=== PATIENT | male | born 1940 | race Caucasian/White ===

== ENCOUNTER 2025-02-23 19:01 | Inpatient (IN) | payer OTHER, SELFPAY ==
[2025-02-23] VITALS (13 sets, daily range): BP systolic 91–129; BP diastolic 46–83; BMI 40.5; BMI 40.2
[2025-02-23 16:37] LABS: % Basophils 0.3 % (0-2); % Eosinophils 0.3 % (0-6); % Immature Granulocytes 0.4 % (0-0.5); % Lymphocytes 8.6 % (20.5-51.1); % Monocytes 7.3 % (1.7-9.3); % Neutrophils 83.1 % (42.2-75.2); Absolute Immature Granulocytes 0.1 10^3/uL (0-0.05); Absolute Monocytes 0.9 10^3/uL (0.1-0.6); Hematocrit 36.9 % (39.0-52.0); Hemoglobin 12.8 g/dL (13.0-18.0); Mean Corp Hgb Conc. 34.7 g/dL (33.0-37.0); Mean Corpuscular Hgb 30.7 pg (27.0-31.0); Mean Corpuscular Volume 88.5 fL (80.0-94.0); Mean Platelet Volume 9.2 fL (7.4-10.4); Nucleated Red Blood Cells % 0 % (-); Platelet Count 242 10^3/uL (130-400); Red Blood Cell Count 4.17 10^6/uL (4.70-6.10); Red Cell Dist. Width 13.5 % (11.5-14.5)
--- NOTE | 2025-02-23 16:39 | ED.GENMED ---
History of Present Illness
General
Chief Complaint: Weakness
Source: patient
Exam Limitations: none
Time Seen by Provider: 02/23/25 16:25
History of Present Illness
History of Present Illness:
84yoM with a history of rheumatoid arthritis, fibromyalgia, and prediabetes presenting via EMS for evaluation after a fall. Patient was attempting to sit in a chair in his garage when he missed the chair and fell on his buttocks. There was no head
strike or loss of consciousness. Patient was unable to get off the ground so EMS was called. He estimates he was on the ground for about 15 to 20 minutes. He denies any injuries from the fall. Patient was hypotension with SBP in the 80s on EMS
arrival and tachycardic. Of note, patient was seen by his newspaper stuffer about 2 weeks ago for a right foot and toe infection. He was advised to go to the hospital to have this evaluated but refused. He was on a 2-week course of antibiotics which he
finished 2 days ago, he is unsure of the name. Patient has also been having increased bilateral leg swelling over the past several weeks. The dose of his water pill was increased from 20 mg to 60 mg a day last week but the patient has not noted
any increase in urination with the medication change. He admits to feeling fatigued. He denies any chest pain, shortness of breath, vomiting, diarrhea, dysuria.
Past History
Past History
ED Past Medical History: Other (IBS/fibromyalgia) and Other (Prostate Hypertrophy)
Patient has exhibited threatening behavior?: No
Social History
Tobacco: Non-smoker
Personal:
Living: with family
Employment: Retired
Phy Exam
Physical Exam
Physical Exam:
Ill appearing, non-toxic
General Physical Exam
General Presentation: mild distress
General Skin: warm and dry
General Habitus: normal and elderly
General Mental: alert
ENT Exam
ENT Exam: normocephalic and other (No external signs of head trauma. No cervical spine tenderness.)
Cardiovascular Exam
Cardiovascular Exam: tachycardia and other (2-3+ pitting edema in bilateral lower extremities)
Pulmonary Exam
Pulmonary Exam: lungs clear, no respiratory distress, no rales, chest non tender, no crackles and no rhonchi
Gastrointestinal Exam
Gastrointestinal Exam: non tender, soft and non distended
Neurological Exam
Neurological Exam: alert
[place] Coma Scale
Eye Opening: Spontaneous
Verbal Response: Oriented
Motor Response: Obeys Commands
GCS Total Score: 15
Skin Exam
Skin Exam: other (R 3rd toe is swollen with open wound and malodor. There is erythema and warmth to the toe extending to the midfoot. No crepitus. )
Psychiatric Exam
Psychiatric Exam: normal mood/affect
Sepsis
Sepsis Screening
Sepsis Assessment: Severe Sepsis
Sepsis Screening: Lactate >2mmol/L
Sepsis Screen
Sepsis Screen: Severe Sepsis
Date: 02/23/25
Time: 19:04
Course
Orders/Labs/Results
Orders:
Orders
02/23/25 16:23
Electrocardiogram (*1) Urgent
Reason for Study: Other
Other Reason for Exam: Possible Sepsis
EKG- Treatment ONCE
IV Insert/Care/Rem.- Treatment PRN
CR Chest - 2 Views Urgent
Comment:
Reason For Exam: suspected infection
02/23/25 16:26
Complete Blood Count/With Diff Urgent
Comprehensive Metabolic Panel Urgent
Lactic Acid Q4H
Comment: ON ICE, CANCEL 2ND ORDER IF FIRST LACTIC ACID LEVEL <2
Magnesium Urgent
Blood Culture Q20M
ARUNA Source: Blood/Venous
Specimen Description:
Comment: Urgent from separate sites. If patient screens positive for possible sepsis
CR Foot - Right Min 3 Views Urgent
Comment:
Reason For Exam: toe swelling/wound
02/23/25 16:27
Cardiac Monitoring- Treatment ONCE
02/23/25 16:30
NT-proBNP Urgent
TSH Reflex To Free T4 Urgent
Troponin I Urgent
Blood Culture Q20M
ARUNA Source: Blood/Venous
Specimen Description:
Comment: Urgent from separate sites. If patient screens positive for possible sepsis
02/23/25 16:41
0.9% Sodium Chloride 500 ml [Nss] 500 ml IV BOLUS
Acetaminophen [Tylenol] 1,000 mg PO NOW STA
02/23/25 17:24
Piperacillin/Tazo 4.5 Gram [Zosyn] 4.5 gram in 100 ml IV NOW
Vancomycin [Vancocin] 2,000 mg 0.9% Sodium Chloride 500 ml [Nss] 500 ml IV NOW
02/23/25 17:29
COVID-19 Antigen Urgent
Source: Nasal Swab
Urinalysis Reflex To Culture Urgent
Date Specimen was Collected: 02/23/25
Time Specimen was Collected: 17:21
Influenza A+B Rapid Molecular Urgent
ARUNA Source: Nasal Swab
Specimen Description:
02/23/25 18:22
Admit/Transfer Patient As Directed
Co-Sign Provider:
Level of Care: Inpatient admission
Assign to:: Medical/Surgical
Physician / Group: juan
Diagnosis: sepsis right third toe infection
Reason for Hospitalization: sepsis right third toe infection
Expected length of stay greater than two midnights?: Yes
ELOS- Estimated Length of Stay in days: 2
I certify the patient meets the requirements for IP care: Yes
PRN Pain Medication Management As Directed
May give lesser potent ordered pain med per pt: Yes
preference::
Protocol:: Medication orders for pain may be administered in a
manner that supports deferring to patient preference
when the pt is:
- Requesting an ordered lesser potent pain medication.
Least to most potent pain medications are defined
as: acetaminophen < NSAID < tramadol < opioids
(morphine, oxycodone, hydromorphone).
- Requesting a lesser dose of the same medication IF
ORDERED.
- Requesting a less intrusive route of administration
if both routes are prescribed by the provider (PO <
IV).
02/23/25 18:23
Code Status As Directed
Resuscitation Status: Do not resuscitate
Reached after discussion with pt or family/Healthcare POA: Yes
DNR Bracelet Application ONCE
02/23/25 20:30
Lactic Acid Q4H
Comment: ON ICE, CANCEL 2ND ORDER IF FIRST LACTIC ACID LEVEL <2
Abnormal Lab Results
02/23/25
16:26
WBC 12.0 H 10^3/uL
(4.8-10.8)
RBC 4.17 L 10^6/uL
(4.70-6.10)
Hgb 12.8 L g/dL
(13.0-18.0)
Hct 36.9 L %
(39.0-52.0)
Abs Immat Gran (auto) 0.1 H 10^3/uL
(0-0.05)
Absolute Neuts (auto) 10.0 H 10^3/uL
(1.4-6.5)
Absolute Lymphs (auto) 1.0 L 10^3/uL
(1.2-3.4)
Absolute Monos (auto) 0.9 H 10^3/uL
(0.1-0.6)
Neutrophils % 83.1 H %
(42.2-75.2)
Lymphocytes % 8.6 L %
(20.5-51.1)
BUN 28 H mg/dl
(9-20)
Glucose 197 H mg/dl
(70-99)
Lactic Acid 2.7 H mmol/L
(0.7-2.0)
Alkaline Phosphatase 145 H U/L
(38-126)
Albumin 3.3 L g/dl
(3.5-5.0)
02/23/25 16:26
02/23/25 16:26
Vital Signs
Initial and Last Documented VS:
Initial Vital Signs
Temp Pulse Resp BP Pulse Ox
98.8 F 124 30 91/46 95
02/23/25 16:20 02/23/25 16:20 02/23/25 16:20 02/23/25 16:20 02/23/25 16:20
Last Documented Vital Signs
Temp Pulse Resp BP Pulse Ox
99.5 F 93 26 125/71 97
02/23/25 18:29 02/23/25 18:45 02/23/25 18:45 02/23/25 18:29 02/23/25 18:45
MDM/Problems Addressed
Differential Diagnosis Includes:
84yoM here after a mechanical fall while getting into chair. Fell on buttocks. Denies head strike or any injury from fall. Unable to get up so EMS called. On arrival, he is febrile to 101.3 with associated tachycardia. SBP in the 80s for EMS.
Initial BP 91/46. R 3rd toe noted to be swollen, erythematous, with malodor. He was seen by podiatry 2 weeks ago and was advised to go to the ED but never came. Also c/o increasing leg swelling x several weeks and 2-3+ edema present on exam. No
external signs of trauma noted. Differential diagnosis includes but is not limited to: cellulitis, osteomyelitis, sepsis, dehydration, CHF, failure to thrive
Initial ED plan: Check cardiac labs, blood cultures, lactate, COVID/flu swab, UA, EKG, CXR, and R foot x-rays. Tylenol and 500cc NS bolus.
*Pulse Oximetry
Patient hypoxic: no (95%)
*EKG
Interpreted by ED Provider?: Yes
EKG Intrepretation Date: 02/23/25
Heart Rate: 108
Rate: tachycardiac
Rhythm: sinus
[place]: left axis deviation
QRS Pattern: right bundle branch block and other (LAFB)
Ischemia: no ischemia
*Critical Care Note
Total Time (30-74mins, 75-104mins- exclusive of procedures): Not Applicable
Update Note
Update Note:
Labs show a white count of 12 and a lactate 2.7. Possible osteomyelitis seen on x-ray per my interpretation, radiology read pending. Patient meeting sepsis criteria. IV Zosyn and vancomycin ordered. Patient admitted for further management.
ED Attending Note
-
Portions of this chart may have been created with voice recognition software.� Occasional wrong word or��sound alike� substitutions may have occurred due to the inherent limitations of voice recognition software.
Discharge Plan
Departure
Patient Disposition: Admit
Date of Disposition: 02/23/25
Time of Disposition: 17:58
Presentation/result/management discussed w/ accepting MD/DO: Hospitalist
Discharge Problem:
Severe sepsis, Diabetic infection of right foot
Interventions
Interventions:
*Risk Screen - Suicide Last Done: 02/23/25 16:46
*General Assessment Last Done: 02/23/25 16:46
*Neglect/Abuse Screening Last Done: 02/23/25 16:46
*ED- Fall Risk Assessment Last Done: 02/23/25 16:46
*ED COVID-19 Vaccine History Last Done: 02/23/25 16:46
ED- Cardiac Assessment Last Done: 02/23/25 16:30
ED- Neurological Assessment Last Done: 02/23/25 16:30
ED- Pulmonary Assessment Last Done: 02/23/25 16:30
[2025-02-23 16:47] LABS: Lactic Acid 2.7 mmol/L (0.7-2.0)
[2025-02-23 16:52] LABS: ALT (SGPT) 19 U/L (0-50); AST (SGOT) 29 U/L (17-59); Albumin 3.3 g/dl (3.5-5.0); Alkaline Phosphatase 145 U/L (38-126); Blood Urea Nitrogen 28 mg/dl (9-20); Calcium 8.9 mg/dl (8.4-10.2); Carbon Dioxide 27 mmol/L (22-30); Chloride 102 mmol/L (98-107); Estimated Creatinine Clearance 53 ml/min; Glucose 197 mg/dl (70-99); Magnesium 1.8 mg/dl (1.6-2.3); Potassium 4.4 mmol/L (3.5-5.1); Sodium 135 mmol/L (135-145); Total Bilirubin 0.6 mg/dl (0.2-1.3); Total Protein 6.4 g/dl (6.3-8.2); eGFR 54.17
[2025-02-23] MEDS: TYLENOL 1000 MG PO (16:53)
[2025-02-23] MEDS: NSS 500 IV (16:57)
[2025-02-23 17:17] LABS: NT-proBNP 672 pg/ml; Troponin I 0.025 ng/ml
[2025-02-23 17:32] LABS: TSH Reflex To Free T4 1.71 uIU/ml (0.47-4.68)
[2025-02-23] MEDS: ZOSYN 100 IV (17:44)
[2025-02-23 17:49] LABS: Urine Albumin Negative (Neg - Trace); Urine Bilirubin Negative (Negative); Urine Character Clear (Clear); Urine Color Yellow; Urine Glucose Negative (Negative); Urine Ketone Negative (Negative); Urine Leukocyte Negative (Negative); Urine Nitrite Negative (Negative); Urine Occult Blood Negative (Negative); Urine Urobilinogen Negative (Neg - 1+); Urine pH 6.5 (5.0-9.0)
[2025-02-23 18:19] LABS: COVID-19 Antigen Negative (Negative)
--- NOTE | 2025-02-23 18:30 | HPS.HSE ---
Family Physician
-
Family Physician: John Judge
Chief Complaint
-
fall
History of Present Illness
84-year-old male past medical history of rheumatoid arthritis, gout, fibromyalgia, prediabetes, chronic neuropathy, prior toe amputations, prior Streptococcus agalactiae bacteremia, presenting after a fall. He was attempting to sit in a chair in
his garage when he missed a chair and fell onto his butt. Denies hitting his head or loss consciousness. Patient was unable to get off the ground so EMS was called. He was on the ground for 15 to 20 minutes. Denies injuries. He was hypotensive
blood pressure in the 80s on EMS arrival and tachycardic.
He was seen by podiatry 2 weeks ago for right foot and toe infection. He was told to go to the hospital refused. He was on 2-week course of antibiotics which she finished 2 days ago but is unsure of the name. Been having increased bilateral leg
swelling the past several weeks. Lasix dose was increased from 20 mg to 60 mg last week but he has not urinated more with the change. He feels fatigued. He denies chest pain or shortness of breath or vomiting or diarrhea.
He denies any injury to the feet.
Medical History
Past Medical History
Past Medical History: Reports Other (rheumatoid arthritis, gout, fibromyalgia, prediabetes, chronic neuropathy, prior toe amputations, prior Streptococcus agalactiae bacteremia)
Past Surgical History: Reports None
Social History
Tobacco: Non-smoker
Alcohol: None
Drug: None
Family History
Family History: Not pertinent
Allergies / Home Medications
Allergies reflects when Allergies were last updated in [employer].
Home Medications with original date entered in [employer]
Allergy/Medication List:
Allergies
Allergy/AdvReac Type Severity Reaction Status Date / Time
erythromycin base Allergy Unknown Verified 02/23/25 16:25
(Erythromycin Base)
hydromorphone HCl (From Allergy Unknown Verified 02/23/25 16:25
Dilaudid)
nortriptyline (Nortriptyline) Allergy Unknown Verified 02/23/25 16:25
sertraline HCl (From Zoloft) Allergy Unknown Verified 02/23/25 16:25
Home Medications
finasteride 5 mg tablet 5 mg PO DAILY 03/24/18
furosemide 20 mg tablet 20 mg PO DAILY 03/24/18
ketoconazole 2 % topical cream 1 applic topical QPM BOTH BIG TOES 03/24/18
kvbbkrli-dm-ebdmq 300 mcg-K 60 mcg-lycop 600 mcg-lutein 300 mcg tablet (Centrum Silver Men) 1 ea PO DAILY 03/24/18
peg 400-propylene glycol (PF) 0.4 %-0.3 % eye drops in a dropperette (Systane (PF)) 1 ea BOTH EYES DAILYPRN PRN dry eye 03/24/18
saw palmetto 160 mg capsule 160 mg PO DAILY 03/24/18
tamsulosin 0.4 mg capsule 0.8 mg PO DAILY 03/24/18
Review of Systems
-
History Source: Patient
A 12 point ROS was completed and negative except as noted: Yes
Constitutional: Reports No Symptoms
EENT: Reports No Symptoms
Respiratory: Reports No Symptoms
Cardiac: Reports No Symptoms
Abdomen/GI: Reports No Symptoms
: Reports No Symptoms
Musculoskeletal: Reports No Symptoms
Skin: Reports No Symptoms
Neurological: Reports No Symptoms
Endocrine: Reports No Symptoms
Hematologic/Lymphatic: Reports No Symptoms
Psych: Reports No Symptoms
Physical Exam
Vital Signs
Vital Signs
Temp Pulse Resp BP Pulse Ox
99.5 F 93 22 118/57 95
02/23/25 18:29 02/23/25 18:29 02/23/25 18:29 02/23/25 17:45 02/23/25 18:29
Physical Exam
General: Well Developed, Well Nourished and No Apparent Distress
HEENT: NormoCephalic, Moist mucous membranes and Atraumatic
Respiratory: Clear
Cardiac: S1/S2 and Regular Rhythm; No Murmur or Rub
GI: Soft, Non Tender, Non Distended and Normal Bowel Sounds; No Organomegaly
Rectal: Deferred by Provider
Musculoskeletal: No Clubbing, No Cyanosis, No Edema and Other (right third toe ulceration, erythematous )
Skin: No Rash
Neuro: Nonfocal/grossly intact
Laboratory Results
-
02/23/25 16:26
02/23/25 16:26
Laboratory Results
Lactic Acid 2.7 mmol/L (0.7-2.0) H 02/23/25 16:26
Total Bilirubin 0.6 mg/dl (0.2-1.3) 02/23/25 16:26
AST 29 U/L (17-59) 02/23/25 16:26
ALT 19 U/L (0-50) 02/23/25 16:26
Alkaline Phosphatase 145 U/L (38-126) H 02/23/25 16:26
Troponin I 0.025 ng/ml 02/23/25 16:30
Data Reviewed
-
Lab Data: Labs Reviewed by me
Old Records: Reviewed
Impression/Plan
-
IMPRESSION:
PLAN:
# Sepsis (fever, leukocytosis, tachycardia) secondary to right third toe infection likely osteomyelitis
-Check blood cultures
- Foot x-ray pending
- IV fluids
-Hold Lasix
- Vancomycin/Zosyn
- Podiatry consulted
# Ambulatory dysfunction/fall today
History of left toe amputation
Rheumatoid arthritis
Gout
Fibromyalgia
Prediabetes
- Not on diabetic medications
Chronic neuropathy
History of Streptococcus agalactiae bacteremia
BPH
- Continue tamsulosin, finasteride
DNR/DNI
DVT prophylaxis-heparin
Regular diet
[2025-02-23] MEDS: VANCOCIN 540 MG IV (18:32)
--- NOTE | 2025-02-23 20:06 | PHA.VAN.IN ---
Assessment
- Assessment
Renal Function: SCR Appears Elevated from baseline (03/27/18 SCR = 1.0)
Concomitant Antimicrobials: ZOSYN
- Previous Dosing Experience
Previous Regimen: 1GM IV Q12H
Date of Regimen: 03/25/18
Provided Trough of: 9.0
Provided AUC of: UNKNOWN
Patient's SCR is: Elevated compared to previous dosing experience (03/25/18 SCR = 1.0)
Patient's weight is: Decreased compared to previous dosing experience (03/25/18 WT = 131.8 KG)
AUC Dosing Plan
- Dosing Variables
Dosing Weight (kg): 120.8
Dosing CrCl (ml/min): 53
Vd coefficient (L/kg): 0.6
- Empiric Dosing
Initial / Loading Dose: 2GM
Maintenance Regimen: 1750MG IV Q24H
Estimated AUC (mcg*h/mL): 523
Estimated Peak (mcg*h/mL): 35.1
Estimated Trough (mcg/ml): 12.1
Estimated Half Life (H): 14.3
Pharmacokinetics Vancomycin I
- -
Patient Age: 84
Patient Sex: Male
Vancomycin Day #: 1
Indication: Skin And Soft Tissue ([R] 3RD TOE OM/SEPSIS)
Pertinent Antimicrobial Allergies:
Allergies
erythromycin base (Erythromycin Base) Allergy (Verified 02/23/25 16:25)
Unknown
Height / Weight:
Height 5 ft 8 in
Actual Weight 120.8 kg
Pertinent Past Medical History: [L] TOE AMPUTATION
- Vital Signs / Lab Results
Temp Pulse Resp BP Pulse Ox
99.5 F 91 22 123/70 97
02/23/25 18:29 02/23/25 19:20 02/23/25 19:20 02/23/25 19:20 02/23/25 19:20
Lab Results - Hematology
02/23/25
16:26
WBC 12.0 H
Lab Results - Chemistry
02/23/25
16:26
BUN 28 H
Creatinine 1.3
Estimated Creat Clear 53
Albumin 3.3 L
02/23/25
16:26
Lactic Acid 2.7 H
Lab Results - Urine
02/23/25
17:29
Urine Nitrite (Reflex) Negative
Leukocyte Esterase Rfl Negative
Microbiology Results
02/23/25 17:29 Influenza Types A & B ([facility]) - Final
Nasal Swab Negative for Influenza A & B, NAAT
Negative results must be combined with clinical observations
and patient history.
Nucleic Acid Amplification test (NAAT)performed on the
[employer] platform.
--- NOTE | 2025-02-23 20:40 | PTCARENOTE ---
Received patient from ED via stretcher. Patient pulled over from stretcher to bed x4 assist. Oriented patient to room and placed call morfin within reach.
[2025-02-23] MEDS: HEPARIN 5000 UNITS SC (20:55)
[2025-02-23 20:58] LABS: Lactic Acid 2.6 mmol/L (0.7-2.0)
[2025-02-23] MEDS: NSS 1000 IV (21:52)
[2025-02-23] MEDS: ZOSYN 50 IV (23:05)
[2025-02-23] MEDS: TYLENOL 650 MG PO (23:05)
[2025-02-24 01:51] LABS: Lactic Acid 1.7 mmol/L (0.7-2.0)
[2025-02-24] MEDS: ZOSYN 50 IV ×4 (05:20→22:33)
[2025-02-24] MEDS: VANCOCIN 535 MG IV (06:10)
[2025-02-24 06:54] VITALS: BP 131/79
--- NOTE | 2025-02-24 07:06 | W.PN.HOSP.TC ---
Today's Communication/Plan
-
stop fluids
resume home Lasix
wean O2 supplementation as tolerated
check MRI
wound care
abx as per ID
Assessment / Plan
Assessment / Plan
Physical Exam
General: Well Developed, Well Nourished and No Apparent Distress
HEENT: NormoCephalic, Moist mucous membranes and Atraumatic
Respiratory: Clear
Cardiac: S1/S2 and Regular Rhythm; No Murmur or Rub
GI: Soft, Non Tender, Non Distended and Normal Bowel Sounds; No Organomegaly
Musculoskeletal: No Clubbing, No Cyanosis, +1 pitting edema, right third toe ulceration, erythematous
Skin: No Rash
Neuro: AOx3 conversant coherent
84M RA Gout Fibromyalgia Prediabetes Chronic Neuropathy prior toe amputations here for sepsis right 3rd toe infection.
# Sepsis (fever, leukocytosis, tachycardia) secondary to right third toe infection likely osteomyelitis
- Blood Wound Cultures NGTD
- Foot x-ray noted no osteo
- IV fluids completed, BP stable, lactic acidosis resolved, tolerating diet
- resume home Lasix
- ID eval appreciated Vancomycin dc, Zosyn continued
- Podiatry consult appreciated follow up MRI
- Cont wound care
#Hypoxia w/ Lower ext edema
#Pulm hypertension
#Possible iatrogenic fluid overload
BNP 672
ECHO appreciated EF 65-70% mild mod mitral stenosis
Home Lasix resumed PO 40 mg daily
# Ambulatory dysfunction/fall
History of left toe amputation
Rheumatoid arthritis
Gout
Fibromyalgia
Prediabetes
Chronic neuropathy
History of Streptococcus agalactiae bacteremia
BPH
- Continue tamsulosin, finasteride
DNR/DNI
DVT prophylaxis-heparin
Regular diet
I spent a total of 50 minutes with the patient or on the floor. More than 50% of this time involved counseling and coordination of care.
Anticipated Discharge: 24 - 48 hours
Subjective/Interval History
-
Date of Service: February 24, 2025
Seen and examined at bedside in no acute distress sitting up comfortably in chair on nasal cannula oxygen supplementation. reports generalized aches and pains.
Objective Data
-
Labs:
Laboratory Results
02/24/25
06:15
WBC Pending
Hgb Pending
Hct Pending
Plt Count Pending
Sodium Pending
Potassium Pending
Chloride Pending
Carbon Dioxide Pending
BUN Pending
Creatinine Pending
Glucose Pending
Calcium Pending
Total Bilirubin Pending
AST Pending
ALT Pending
Alkaline Phosphatase Pending
Vital Signs:
Vital Signs
Temp Pulse Resp BP Pulse Ox
97.7 F 92 20 114/62 96
02/24/25 01:15 02/23/25 23:27 02/23/25 23:27 02/23/25 23:27 02/23/25 23:27
I&O
02/23/25 02/24/25 02/25/25
06:59 06:59 06:59
Intake Total 240 / 240
Output Total 575 / 575
Balance -335 / -335
[2025-02-24 07:18] LABS: % Basophils 0.4 % (0-2); % Eosinophils 2.1 % (0-6); % Immature Granulocytes 1.6 % (0-0.5); % Lymphocytes 16.5 % (20.5-51.1); % Monocytes 12.6 % (1.7-9.3); % Neutrophils 66.8 % (42.2-75.2); Absolute Eosinophils 0.2 10^3/uL (0-0.7); Absolute Immature Granulocytes 0.2 10^3/uL (0-0.05); Absolute Lymphocytes 1.8 10^3/uL (1.2-3.4); Absolute Monocytes 1.4 10^3/uL (0.1-0.6); Absolute Neutrophils 7.2 10^3/uL (1.4-6.5); Hematocrit 34.3 % (39.0-52.0); Hemoglobin 11.5 g/dL (13.0-18.0); Mean Corp Hgb Conc. 33.5 g/dL (33.0-37.0); Mean Corpuscular Volume 89.6 fL (80.0-94.0); Mean Platelet Volume 9.3 fL (7.4-10.4); Nucleated Red Blood Cells % 0 % (-); Platelet Count 218 10^3/uL (130-400); Red Blood Cell Count 3.83 10^6/uL (4.70-6.10); Red Cell Dist. Width 13.8 % (11.5-14.5); White Blood Cell Count 10.8 10^3/uL (4.8-10.8)
[2025-02-24 07:36] LABS: ALT (SGPT) 29 U/L (0-50); AST (SGOT) 76 U/L (17-59); Albumin 2.8 g/dl (3.5-5.0); Alkaline Phosphatase 106 U/L (38-126); Blood Urea Nitrogen 27 mg/dl (9-20); Calcium 8.1 mg/dl (8.4-10.2); Carbon Dioxide 26 mmol/L (22-30); Chloride 106 mmol/L (98-107); Estimated Creatinine Clearance 58 ml/min; Glucose 130 mg/dl (70-99); Potassium 4.3 mmol/L (3.5-5.1); Sodium 137 mmol/L (135-145); Total Bilirubin 0.6 mg/dl (0.2-1.3); Total Protein 5.7 g/dl (6.3-8.2); eGFR 59.63
[2025-02-24] MEDS: DESENEX/MITRAZOL/ZEASORB 1 APPLIC TOPICAL ×2 (07:57→19:56)
[2025-02-24] MEDS: PROSCAR 5 MG PO (07:57)
[2025-02-24] MEDS: FLOMAX 0.8 MG PO (07:59)
[2025-02-24] MEDS: THERAGRAN 1 TABLET PO (07:59)
[2025-02-24] MEDS: HEPARIN 5000 UNITS SC ×2 (07:59→19:56)
[2025-02-24] MEDS: TYLENOL 650 MG PO (07:59)
[2025-02-24] MEDS: ULTRAM 25 MG PO (10:18)
[2025-02-24] MEDS: NSS 1000 IV (10:25)
--- NOTE | 2025-02-24 12:42 | WOUNDNOTE ---
WO RN NOTE: Reviewed chart and met with patient. Patient sent to [facility] ER with infected right 3rd toe wound. Per chart review patient declined use of antibiotics a few weeks ago. Wound is necrotic appearing without drainage or odor. Betadine applied,
awaiting podiatry consult. Patient declined use of compression for bilateral LE , but states he wears compression at home. 2 areas of sacral bruising noted, likely from fall. Air cushion added to chair. Will follow peripherally.
--- NOTE | 2025-02-24 12:49 | WOUNDNOTE ---
RIGHT 3rd TOE
--- NOTE | 2025-02-24 12:50 | WOUNDNOTE ---
Right 3rd Toe
[2025-02-24] MEDS: LASIX 40 MG PO (13:23)
--- NOTE | 2025-02-24 14:43 | CON.ID ---
Consultation
-
Date/Time Consultation Requested: February 24, 2025 [id number]
Date/Time Consultation Performed: February 24, 2025 1445
Requesting Provider: Dr. Skip Hirsch
Performing Provider: Dr. Soraya Butler
Reason for Consultation: Sepsis from suspected right third toe infection
Chief Complaint / Past History
Chief Complaint
Weakness
History of Present Illness
84-year-old male with history of prediabetes, neuropathy, rheumatoid arthritis, fibromyalgia who presented to the hospital on February 23 due to weakness and fall. He has a chronic right third toe wound for which he follows with podiatry. Last week,
his city route driver noted that the toe was infected with cellulitis. Creative Services Coordinator recommended he go to the hospital. However he refused. He was placed on a course of antibiotic for which the patient cannot remember the name. However his toe did not
improve. Yesterday he developed weakness. He tried to sit down on his chair but fell to the floor. He was not able to get up. He was therefore brought to the ER. Temperature 101.3. White count of 12. Lactic acid 2.7. He was started on
vancomycin and Zosyn. Foot XRAY distal swelling of right 3rd toe. CXR bibasilar opacities. He reports NO cough or sob. He denies fevers/chills at home. He has bilateral LE edema for the past month, placed on furosemide without significan
improvement.
Past History
Additional Past Medical History:
Prediabetes
Neuropathy
Rheumatoid arthritis
Fibromyalgia
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
BPH
Toe amputations
Allergy History:
erythromycin base (Erythromycin Base) Allergy (Verified 02/23/25 16:25)
Unknown
hydromorphone HCl (From Dilaudid) Allergy (Verified 02/23/25 16:25)
Unknown
nortriptyline (Nortriptyline) Allergy (Verified 02/23/25 16:25)
Unknown
sertraline HCl (From Zoloft) Allergy (Verified 02/23/25 16:25)
Unknown
Medications Reviewed: Yes
Current Antibiotics:
Vancomycin
Zosyn
Social History
Tobacco: Non-Smoker
Alcohol: None
Drug: None
Personal:
Living: With Family
Family History
Family History: Not Pertinent
Review of Systems
Review of Systems
General: Change in Appetite; Negative Fever or Chills
HEENT: Negative Sinus Problems, Headache or Pharyngitis
Cardiovascular: Edema; Negative Chest Pain or Dyspnea
Respiratory: Negative Dyspnea or Cough
Gasteroenterology: Negative Nausea, Vomiting or Diarrhea
Genital / Urological: Negative Dysuria or Flank Pain
Endocrine: Weakness
Skin / Hair / Nails: Negative Rash
Neurological: Negative Dizziness
All systems: All other systems were reviewed and were negative
Vital Signs
Temp Pulse Resp BP Pulse Ox
97.5 F 82 18 131/79 99
02/24/25 06:54 02/24/25 06:54 02/24/25 06:54 02/24/25 06:54 02/24/25 11:31
Selected Entries
02/23/25
16:41
Temp 101.3 F H
Physical Exam
Physical Exam
Constitutional: No Acute Distress and Obese
Eyes: No Conjunctival Hemorrhage and Sclera Anicteric
Cardiovascular: Regular Rate and S1/S2
Pulmonary: Clear; Negative Wheezes, Rales, Rhonchi or Coarse
Gastrointestinal: Soft, Non Tender, Non Distended and Normal Bowel Sounds
Genito-Urinary: Negative CVA Tenderness
Extremities: Edema (BLE 2-3+ edema)
Wound: Other (Right foot dressing dry (Podiatry just wrapped foot few secs ago).)
Neurological: AO x 3
Lab / Diagnostic Study Results
02/24/25 06:15
02/24/25 06:15
Abs Immat Gran (auto) 0.2 10^3/uL (0-0.05) H 02/24/25 06:15
Absolute Neuts (auto) 7.2 10^3/uL (1.4-6.5) H 02/24/25 06:15
Absolute Lymphs (auto) 1.8 10^3/uL (1.2-3.4) 02/24/25 06:15
Absolute Monos (auto) 1.4 10^3/uL (0.1-0.6) H 02/24/25 06:15
Absolute Basos (auto) 0.0 10^3/uL (0-0.2) 02/24/25 06:15
Immature Gran % 1.6 % (0-0.5) H 02/24/25 06:15
Neutrophils % 66.8 % (42.2-75.2) 02/24/25 06:15
Lymphocytes % 16.5 % (20.5-51.1) L 02/24/25 06:15
Monocytes % 12.6 % (1.7-9.3) H 02/24/25 06:15
Eosinophils % 2.1 % (0-6) 02/24/25 06:15
Basophils % 0.4 % (0-2) 02/24/25 06:15
Lactic Acid 1.7 mmol/L (0.7-2.0) 02/24/25 01:11
Microbiology Results
Micro:
02/24/25 01:11 MRSA Screen - Pending
Nose
02/23/25 17:29 Influenza Types A & B ([facility]) - Final
Nasal Swab Negative for Influenza A & B, NAAT
Negative results must be combined with clinical observations
and patient history.
Nucleic Acid Amplification test (NAAT)performed on the
[employer] platform.
02/23/25 16:30 Blood Culture - Pending
Blood/Venous
02/23/25 16:26 Blood Culture - Pending
Blood/Venous
02/23/25 CXR: Bibasilar pneumonia. Cannot rule out component of underlying chronic interstitial lung disease.
02/23/25 Right foot xray: Soft tissue wound noted along the distal aspect of the third digit with underlying soft tissue swelling. No convincing radiographic evidence for active osteomyelitis.
Assessment / Plan
# Right third toe infection, suspect osteomyelitis
# Fever
- Per Podiatry - wound probes deep
Appreciate deep cx's pending
- Agree with MRI
- Follow blood cx's
- Continue Zosyn
- DC Vancomycin
- Trend temps/wbc
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
Prediabetes
Neuropathy
Rheumatoid arthritis
Fibromyalgia
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
BPH
Toe amputations
Care Review
Plan reviewed with: Physician (Dr. Luis)
--- NOTE | 2025-02-24 14:50 | CARDSERVLU ---
Echocardiogram with [facility] completed after protocol screening completed. Allergies verified.
Patent IV site: _Right arm basillic 18 G PC____
IV site flushed with 0.9% NaCl pre and post administration.
Diluted bolus method utilized to enhance visualization of ventricular roe.
Total volume given: ___3_ mL
Patient tolerated all procedures well without complications.
--- NOTE | 2025-02-24 15:05 | PHA.VAN.FU ---
Vancomycin Assessment / Plan
- Assessment
Renal Function: Stable
WBC's are: Trending Down
In the past 24 hrs, patient has been: Febrile (101.3)
Concomitant Antimicrobials: piperacillin-tazobactam
- Dosing Plan
Continue: vanc 1750 mg q24h
- Monitoring Plan
No level(s) ordered at this time: consider in the upcoming days
- Follow Up
Pharmacy will continue to follow.
Vancomycin Follow UP
- -
Patient Age: 84
Patient Sex: Male
Vancomycin Day #: 2
Indication: Skin And Soft Tissue ([R] 3RD TOE OM/SEPSIS)
Pertinent Antimicrobial Allergies:
Allergies
erythromycin base (Erythromycin Base) Allergy (Verified 02/23/25 16:25)
Unknown
Height / Weight:
Height 5 ft 8 in
Actual Weight 119.833 kg
Pertinent Past Medical History: [L] TOE AMPUTATION
- Vital Signs / Lab Results
Temp Pulse Resp BP Pulse Ox
97.5 F 82 18 131/79 99
02/24/25 06:54 02/24/25 06:54 02/24/25 06:54 02/24/25 06:54 02/24/25 11:31
Lab Results - Hematology
02/23/25 02/24/25
16:26 06:15
WBC 12.0 H 10.8
Lab Results - Chemistry
02/23/25 02/24/25
16:26 06:15
BUN 28 H 27 H
Creatinine 1.3 1.2
Estimated Creat Clear 53 58
Albumin 3.3 L 2.8 L
02/23/25 02/23/25 02/24/25
16:26 20:40 01:11
Lactic Acid 2.7 H 2.6 H 1.7
Lab Results - Urine
02/23/25
17:29
Urine Nitrite (Reflex) Negative
Leukocyte Esterase Rfl Negative
Microbiology Results
02/23/25 17:29 Influenza Types A & B ([facility]) - Final
Nasal Swab Negative for Influenza A & B, NAAT
Negative results must be combined with clinical observations
and patient history.
Nucleic Acid Amplification test (NAAT)performed on the
[employer] platform.
[2025-02-24 15:34] VITALS: BP 109/57
--- NOTE | 2025-02-24 15:39 | W.CS.POD ---
Consult Summary - Podiatry
-
This patient is an 84 year old male, prediabetic with idiopathic peripheral neuropathy, and history of prior toe amputations, admitted yesterday with an infected diabetic wound of the right third toe. The patient states he was last seen by his
instrumentation and control technician (Nabil) one to two week ago who evaluated the toe and told the patient to go the ER. The patient did not do so but took the antibiotic (unknown) every day since. Apparently he was attempting to sit in a chair in his garage and
fell. Unable to get off the ground, EMS was called he was brought to the ER yesterday. Proposal Analyst Podiatry has been consulted for the care and evaluation of the foot infection, as Dr. Ferrer has retired. The patient denies fever, chills or sweats, nor
any stiffness behind the knee or in the groin.
PMH:
Prediabetes
Peripheal Neuropathy
Morbid Obesity
Chronic Renal Disease, stage II
High Cholesterol
Rheumatoid arthritis
Fibromyalgia
H/O Gout
Medications and allergies, Family History, Surgical history, and Social history reviewed in the chart.
Clinically, Pedal pulses non-palpable bilaterally, perhaps, in part, due to chronic LE pitting edema. Capillary refill to toes 2 seconds.
Diffuse numbness of the forefoot and midfoot, bilaterally.
Decreased skin temp, increased turgor, absent digital hair growth. Light erythema of the dorsal right forefoot. No overt cellulitis or lymphangitis noted.
There is a 0.5cm full skin thickness ulceration of the lateral right third toe, with seropurulent discharge and malodor, probing and extending plantarly and proximally directly to bone.
There is prior amputation of the left third toe, and of the right great toe, with remaining toes severely contracted, bilaterally.
WBC 12.0 on admission, 10.8 today.
02/23/25 XRAY of Right foot: Soft tissue wound noted along the distal aspect of the third digit with underlying soft tissue swelling. No convincing radiographic evidence for active osteomyelitis. MRI would be of greater sensitivity.
02/23/25 Blood Culture x 2: PND
No wound culture taken on admission
ASSESSMENT/PLAN:
Infected, diabetic/neuropathic, ulceration of the right third toe with local cellulitis, probing to bone.
History of prior toe amputations.
Continue IV antibiotics (currently Vanco/Zosyn)
MRI right foot to rule out osteomyelitis of right third toe/metatarsal, and abscess right foot.
Patient to remain NWB, right foot.
Wound culture taken/ordered.
Wound care dressings ordered.
--- NOTE | 2025-02-24 16:55 | CM ---
Alert awake oriented patient who lives with his Isaura who lives in a 2 story home with 4 step to enter and 12 steps to bed and bathroom. He is independent in driving and in all activities of daily living.Has new oxygen here in hospital.
VN hx / No SNF history
Pharmacy [facility]
PCP DR John Judge
PLAN [facility] for home oxygen need. Offer VN
[2025-02-24] MEDS: NIZORAL 2% CREAM 1 APPLIC TOPICAL (17:39)
[2025-02-24 23:01] VITALS: BP 130/69
[2025-02-25] MEDS: ZOSYN 50 IV ×3 (05:14→18:33)
[2025-02-25 05:16] LABS: Hematocrit 34.7 % (39.0-52.0); Hemoglobin 11.7 g/dL (13.0-18.0); Mean Corp Hgb Conc. 33.7 g/dL (33.0-37.0); Mean Corpuscular Hgb 30.5 pg (27.0-31.0); Mean Corpuscular Volume 90.4 fL (80.0-94.0); Mean Platelet Volume 9.5 fL (7.4-10.4); Platelet Count 211 10^3/uL (130-400); Red Blood Cell Count 3.84 10^6/uL (4.70-6.10); Red Cell Dist. Width 13.7 % (11.5-14.5); White Blood Cell Count 10.9 10^3/uL (4.8-10.8)
[2025-02-25 05:44] LABS: Blood Urea Nitrogen 22 mg/dl (9-20); Calcium 8.2 mg/dl (8.4-10.2); Carbon Dioxide 27 mmol/L (22-30); Chloride 105 mmol/L (98-107); Estimated Creatinine Clearance 63 ml/min; Glucose 153 mg/dl (70-99); Phosphorus 3.3 mg/dl (2.5-4.5); Sodium 135 mmol/L (135-145); eGFR > 60.00
[2025-02-25 06:00] VITALS: BMI 39.8
--- NOTE | 2025-02-25 07:07 | W.PN.HOSP.TC ---
Today's Communication/Plan
-
cont abx as per ID
npo after midnight for OR as per podiatry
Pain control
Assessment / Plan
Assessment / Plan
Physical Exam
General: Well Developed, Well Nourished and No Apparent Distress
HEENT: NormoCephalic, Moist mucous membranes and Atraumatic
Respiratory: Clear
Cardiac: S1/S2 and Regular Rhythm; No Murmur or Rub
GI: Soft, Non Tender, Non Distended and Normal Bowel Sounds; No Organomegaly
Musculoskeletal: No Clubbing, No Cyanosis, +1 pitting edema, right third toe ulceration, erythematous
Skin: No Rash
Neuro: AOx3 conversant coherent
84M RA Gout Fibromyalgia Prediabetes Chronic Neuropathy prior toe amputations here for sepsis right 3rd toe infection.
# Sepsis (fever, leukocytosis, tachycardia) secondary to right third toe infection likely osteomyelitis
- Blood Wound Cultures NGTD
- Foot x-ray noted no osteo
- IV fluids completed, BP stable, lactic acidosis resolved, tolerating diet
- resume home Lasix
- ID eval appreciated Vancomycin dc, Zosyn continued
- Rt foot MRI appreciated osteo Right 3rd and 4th toes, severe cellulitis right ft and ankle
- Podiatry consult NPO after midnight for OR
- Cont wound care
#Hypoxia w/ Lower ext edema
#Pulm hypertension
#Possible iatrogenic fluid overload
BNP 672
ECHO appreciated EF 65-70% mild mod mitral stenosis
Home Lasix resumed PO 40 mg daily
Hypoxia since resolved stable resp status on room air
# Ambulatory dysfunction/fall
History of left toe amputation
Rheumatoid arthritis
Gout
Fibromyalgia
Prediabetes
Chronic neuropathy
History of Streptococcus agalactiae bacteremia
BPH
- Continue tamsulosin, finasteride
DNR/DNI
DVT prophylaxis-heparin
Regular diet
I spent a total of 45 minutes with the patient or on the floor. More than 50% of this time involved counseling and coordination of care.
Anticipated Discharge: 24 - 48 hours
Subjective/Interval History
-
Date of Service: February 25, 2025
no acute distress. stable respiratory status on room air at time of evaluation. Overall reports feeling well, pain relatively well controlled with current pain regimen.
Objective Data
-
Labs:
Laboratory Results
02/25/25
04:06
WBC 10.9 H
Hgb 11.7 L
Hct 34.7 L
Plt Count 211
Sodium 135
Potassium 4.0
Chloride 105
Carbon Dioxide 27
BUN 22 H
Creatinine 1.1
Glucose 153 H
Calcium 8.2 L
Vital Signs:
Vital Signs
Temp Pulse Resp BP Pulse Ox
98.2 F 81 20 130/69 97
02/24/25 23:01 02/24/25 23:01 02/24/25 23:01 02/24/25 23:01 02/24/25 23:01
I&O
02/24/25 02/25/25 02/26/25
06:59 06:59 06:59
Intake Total 240 / 240 1260 / 1260
Output Total 575 / 575 1974
Balance -335 / -335 -715 / -715
[2025-02-25 07:20] VITALS: BP 116/65
[2025-02-25] MEDS: HEPARIN 5000 UNITS SC ×2 (07:44→20:43)
[2025-02-25] MEDS: FLOMAX 0.8 MG PO (07:44)
[2025-02-25] MEDS: LASIX 40 MG PO (07:44)
[2025-02-25] MEDS: PROSCAR 5 MG PO (07:44)
[2025-02-25] MEDS: THERAGRAN 1 TABLET PO (07:45)
[2025-02-25] MEDS: DESENEX/MITRAZOL/ZEASORB 1 APPLIC TOPICAL ×2 (07:46→20:44)
[2025-02-25] MEDS: TYLENOL 650 MG PO (07:57)
--- NOTE | 2025-02-25 14:15 | W.PN.ID1 ---
Date of Service
Date of Service: February 25, 2025
Today's Communication
Continue antibiotics.
Assessment / Plan
# Right third toe SSTI
# Right third/fourth toe osteomyelitis
# Fever
- Per Podiatry - wound probes deep
Deep wound cx's pending; preliminarily show Proteus spp.
- Follow blood cx's
- Continue Zosyn
- Trend temps/wbc
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
Prediabetes
Neuropathy
Rheumatoid arthritis
Fibromyalgia
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
BPH
Hx toe amputations
Chief Complaint
-: Other (Right foot osteomyelitis)
Subjective / Review of Systems
Review of Systems: No Fever and No Chills
Vital Signs / Physical Exam
Vital Signs
Vital Signs
Temp Pulse Resp BP Pulse Ox
97.4 F 73 16 116/65 94
02/25/25 07:20 02/25/25 07:44 02/25/25 07:20 02/25/25 07:44 02/25/25 11:06
Physical Exam
Constitutional: No Acute Distress, Comfortable, Non-toxic and Obese
Eyes: Sclera Anicteric
Cardiovascular: S1/S2; Negative S3/S4
Pulmonary: Non Labored
Gastrointestinal: Soft and Non Tender
Wound: Other (Right third toe swollen and dressed. Mild serous strikethrough)
Neurological: Awake and Alert
Psychological: Calm
Objective Data
Lab Data
Lab Results
02/25/25 04:06
02/25/25 04:06
Estimated Creat Clear 63 ml/min 02/25/25 04:06
Lactic Acid 1.7 mmol/L (0.7-2.0) 02/24/25 01:11
Total Bilirubin 0.6 mg/dl (0.2-1.3) 02/24/25 06:15
AST 76 U/L (17-59) H 02/24/25 06:15
ALT 29 U/L (0-50) 02/24/25 06:15
Alkaline Phosphatase 106 U/L (38-126) 02/24/25 06:15
Most recent labs reviewed.
Micro Results:
02/24/25 15:54 Wound Culture - Preliminary
Toe Proteus species
Gram Stain - Preliminary
02/24/25 01:11 MRSA Screen - Final
Nose No Methicillin Resistant Staphylococcus aureus isolated.
02/23/25 16:30 Blood Culture - Preliminary
Blood/Venous No Growth in 24 hours- Final report to follow
02/23/25 16:26 Blood Culture - Preliminary
Blood/Venous No Growth in 24 hours- Final report to follow
02/23/25 17:29 Influenza Types A & B ([facility]) - Final
Nasal Swab Negative for Influenza A & B, NAAT
Negative results must be combined with clinical observations
and patient history.
Nucleic Acid Amplification test (NAAT)performed on the
[employer] platform.
Imaging:
02/25/2025 MRI right lower extremity: Acute osteomyelitis of the phalanges of the left third toe. Acute osteomyelitis also seen in the middle and proximal phalanges of the left fourth toe.
02/23/25 CXR: Bibasilar pneumonia. Cannot rule out component of underlying chronic interstitial lung disease.
02/23/25 Right foot xray: Soft tissue wound noted along the distal aspect of the third digit with underlying soft tissue swelling. No convincing radiographic evidence for active osteomyelitis.
--- NOTE | 2025-02-25 14:48 | W.PN.POD ---
Today's Communication
Today's Communication
Anticipate patient to OR tomorrow for right third toe amputation.
NPO after midnight.
Assessment / Plan
-
Assessment:
Infected, diabetic/neuropathic, ulceration of the right third toe with local cellulitis, probing to bone.
History of prior toe amputations.
Prediabetes
Peripheal Neuropathy
Morbid Obesity
Chronic Renal Disease, stage II
Plan:
Redressing of wound at bedside.
Anticipate patient to OR tomorrow for right third toe amputation. Discussed surgical plan with patient.
NPO after midnight
Subjective
Objective
Temp Pulse Resp BP Pulse Ox
97.4 F 73 16 116/65 94
02/25/25 07:20 02/25/25 07:44 02/25/25 07:20 02/25/25 07:44 02/25/25 11:06
02/25/25 04:06
02/25/25 04:06
Vital Signs and Lab results were reviewed.
Clinically, Pedal pulses non-palpable bilaterally, perhaps, in part, due to chronic LE pitting edema. Capillary refill to toes delayed. Foot is tepid to touch.
Diffuse numbness of the forefoot and midfoot, bilaterally.
Mildly decreased skin temp, increased turgor, absent digital hair growth. Light erythema of the dorsal right forefoot. No ascending cellulitis or lymphangitis noted.
Severe edema of the right third toe. There is a 0.5cm full skin thickness ulceration of the lateral right third toe, with mild seropurulent discharge and malodor, probing and extending plantarly and proximally directly to bone.
Also noted is prior healed amputation of the left third toe, and of the right great toe, with remaining toes severely contracted, bilaterally.
WBC 12.0 on admission, 10.9 today.
02/23/25 Blood Culture x 2: No growth 24 hours.
02/24/25 Wound Culture, Left third toe: Prelim-Proteus.
02/23/25 XRAY of Right foot: Soft tissue wound noted along the distal aspect of the third digit with underlying soft tissue swelling. No convincing radiographic evidence for active osteomyelitis. MRI would be of greater sensitivity.
02/25/25 MRI, Right foot:
THIRD TOE: There is low T1 and high T2/STIR signal abnormality throughout the distal phalanx, middle phalanx, and most of the distal half of the proximal phalanx of the third toe consistent with acute osteomyelitis. There is a large amount of
surrounding edema and swelling consistent with cellulitis.
FOURTH TOE: There is low T1 and hyperintense T2/FLAIR signal abnormality in the middle phalanx and in the head and distal shaft of the proximal phalanx of the fourth toe consistent with acute osteomyelitis.
-THIS FINDING DOES NOT CORRELATE CLINICALLY.
[2025-02-25 15:20] VITALS: BP 125/67
[2025-02-25] MEDS: NIZORAL 2% CREAM TOPICAL ×2 (18:37→18:40)
[2025-02-25] MEDS: FLUSH (NSS) 1 FLUSH IV (20:45)
[2025-02-25 23:30] VITALS: BP 141/86
[2025-02-26] VITALS (15 sets, daily range): BP systolic 75–159; BP diastolic 47–94; BMI 38.9
[2025-02-26] MEDS: ZOSYN 50 IV ×5 (00:14→23:27)
[2025-02-26 05:48] LABS: Hematocrit 36.7 % (39.0-52.0); Hemoglobin 12.2 g/dL (13.0-18.0); Mean Corp Hgb Conc. 33.2 g/dL (33.0-37.0); Mean Corpuscular Hgb 29.9 pg (27.0-31.0); Mean Platelet Volume 9.5 fL (7.4-10.4); Platelet Count 230 10^3/uL (130-400); Red Blood Cell Count 4.08 10^6/uL (4.70-6.10); Red Cell Dist. Width 13.3 % (11.5-14.5); White Blood Cell Count 10.6 10^3/uL (4.8-10.8)
[2025-02-26 06:12] LABS: Blood Urea Nitrogen 19 mg/dl (9-20); Calcium 8.7 mg/dl (8.4-10.2); Carbon Dioxide 29 mmol/L (22-30); Chloride 104 mmol/L (98-107); Estimated Creatinine Clearance 69 ml/min; Glucose 114 mg/dl (70-99); Phosphorus 3.5 mg/dl (2.5-4.5); Potassium 4.4 mmol/L (3.5-5.1); Sodium 137 mmol/L (135-145); eGFR > 60.00
--- NOTE | 2025-02-26 07:27 | PTCARENOTE ---
Pt NPO from [facility], GONSALOG wipes done on pt & linen changed.Pt denies of any need of pain medication.No other complaints noted from pt.Pt oob in chair this morning.
--- NOTE | 2025-02-26 08:24 | W.PN.HOSP.TC ---
Today's Communication/Plan
-
wound care, NWB right foot as per Podiatry
cont abx as per ID
pain control prn Tylenol Toradol
GI ppx Protonix while using Toradol
follow cultures, pathology results
Assessment / Plan
Assessment / Plan
Physical Exam
General: Well Developed, Well Nourished and No Apparent Distress
HEENT: NormoCephalic, Moist mucous membranes and Atraumatic
Respiratory: Clear
Cardiac: S1/S2 and Regular Rhythm; No Murmur or Rub
GI: Soft, Non Tender, Non Distended and Normal Bowel Sounds; No Organomegaly
Musculoskeletal: No Clubbing, No Cyanosis, +1 pitting edema, right third toe ulceration, erythematous
Skin: No Rash
Neuro: AOx3 conversant coherent
84M RA Gout Fibromyalgia Prediabetes Chronic Neuropathy prior toe amputations here for sepsis right 3rd toe infection.
# Sepsis (fever, leukocytosis, tachycardia) secondary to right third toe infection likely osteomyelitis
- Blood Wound Cultures NGTD
- Foot x-ray noted no osteo
- IV fluids completed, BP stable, lactic acidosis resolved, tolerating diet
- resume home Lasix
- ID eval appreciated Vancomycin dc, Zosyn continued
- Rt foot MRI appreciated osteo Right 3rd and 4th toes, severe cellulitis right ft and ankle
- Podiatry consult appreciated Partial third ray amputation, right foot performed 02/26, NWB 24 hours recommended
- Cont wound care
- Pain control, prn Tylenol, prn Tramadol switched to Toradol (patient reported adverse effect Tramadol hallucination, made him 'feel crazy')
- Protonix GI prophylaxis with Toradol use
- eventual PT/OT evaluation when cleared to participate as per Podiatry
#Hypoxia w/ Lower ext edema
#Pulm hypertension
#Likely iatrogenic fluid overload
#Hx lower ext lymphedema
BNP 672
ECHO appreciated EF 65-70% mild mod mitral stenosis
Home Lasix resumed PO 40 mg daily
Hypoxia since resolved stable resp status on room air
# Ambulatory dysfunction/fall
History of left toe amputation
Rheumatoid arthritis
Gout
Fibromyalgia
Prediabetes
Chronic neuropathy
History of Streptococcus agalactiae bacteremia
BPH
- Continue tamsulosin, finasteride
DNR/DNI
DVT prophylaxis-heparin
Regular diet
I spent a total of 50 minutes with the patient or on the floor. More than 50% of this time involved counseling and coordination of care.
Anticipated Discharge: 24 - 48 hours
Subjective/Interval History
-
Date of Service: February 26, 2025
Appears relatively comfortable following amputation. Reports pain but refusing tramadol, reporting that it made him 'feel crazy' and caused visual hallucinations. Willing to accept Tylenol.
Objective Data
-
Labs:
Laboratory Results
02/26/25
04:12
WBC 10.6
Hgb 12.2 L
Hct 36.7 L
Plt Count 230
Sodium 137
Potassium 4.4
Chloride 104
Carbon Dioxide 29
BUN 19
Creatinine 1.0
Glucose 114 H
Calcium 8.7
Vital Signs:
Vital Signs
Temp Pulse Resp BP Pulse Ox
97.9 F 88 16 142/89 96
02/26/25 07:45 02/26/25 07:45 02/26/25 07:45 02/26/25 07:45 02/26/25 07:45
I&O
02/25/25 02/26/25 02/27/25
06:59 06:59 06:59
Intake Total 1260 / 1260 720 / 720
Output Total 1974 / 1974 2825 / 2825
Balance -715 / -715 -2104 / -2104
--- NOTE | 2025-02-26 10:04 | W.PN.UPDATE ---
Update Note
Progress Note Update
The patient understands the benefits, risks, and possible complications of the proposed surgical procedure, as well as the potential need for further surgery.
Patient consent for debridement of infected, non-viable, skin soft tissue and bone, right foot, in the treatment of osteomyelitis obtained at bedside.
Procedure: Partial third ray amputation, right foot.
Prognosis: good.
Bone specimen (proximal phalanx) sent for path/micro. Clean bone margin: first met to path.
Orders:
XRAYS, right foot
Resume diet
NWB restriction, right foot for 24 hours.
Surgical shoe ordered.
[2025-02-26] MEDS: SUBLIMAZE 50 MCG IV ×2 (10:34→10:48)
--- NOTE | 2025-02-26 12:00 | PTCARENOTE ---
Received pt back from OR. AAOx3. 2L O2, pox 96. R foot with bleeding through dressing. Reinforced with abd pad/kerlix. B/l LE elevated on pillows. Pt has no complaints at this time. Call morfin within reach.
[2025-02-26] MEDS: LASIX 40 MG PO (12:47)
[2025-02-26] MEDS: PROSCAR 5 MG PO (12:47)
[2025-02-26] MEDS: THERAGRAN 1 TABLET PO (12:47)
[2025-02-26] MEDS: FLOMAX 0.8 MG PO (12:47)
[2025-02-26] MEDS: HEPARIN 5000 UNITS SC ×2 (12:50→20:46)
[2025-02-26] MEDS: DESENEX/MITRAZOL/ZEASORB 1 APPLIC TOPICAL ×2 (13:21→20:46)
[2025-02-26] MEDS: NIZORAL 2% CREAM 1 APPLIC TOPICAL (18:06)
[2025-02-26] MEDS: PROTONIX IV 40 MG IV (18:45)
[2025-02-26] MEDS: NSS (PRESERVATIVE FREE) 10 ML IV (18:45)
[2025-02-26] MEDS: TORADOL 15 MG IV (18:46)
[2025-02-26] MEDS: NON-FORMULARY ITEM 150 MG PO (20:41)
[2025-02-26] MEDS: FLUSH (NSS) 1 FLUSH IV (23:28)
[2025-02-27] MEDS: TORADOL 15 MG IV ×3 (00:46→19:55)
[2025-02-27 03:17] VITALS: BP 126/69
[2025-02-27] MEDS: ZOSYN 50 IV ×4 (06:24→23:03)
[2025-02-27 06:39] LABS: Hematocrit 37.8 % (39.0-52.0); Hemoglobin 12.6 g/dL (13.0-18.0); Mean Corp Hgb Conc. 33.3 g/dL (33.0-37.0); Mean Corpuscular Hgb 29.8 pg (27.0-31.0); Mean Corpuscular Volume 89.4 fL (80.0-94.0); Mean Platelet Volume 9.1 fL (7.4-10.4); Platelet Count 242 10^3/uL (130-400); Red Blood Cell Count 4.23 10^6/uL (4.70-6.10); Red Cell Dist. Width 13.4 % (11.5-14.5); White Blood Cell Count 11.6 10^3/uL (4.8-10.8)
[2025-02-27 07:14] LABS: Blood Urea Nitrogen 21 mg/dl (9-20); Calcium 8.7 mg/dl (8.4-10.2); Carbon Dioxide 29 mmol/L (22-30); Chloride 104 mmol/L (98-107); Estimated Creatinine Clearance 57 ml/min; Glucose 118 mg/dl (70-99); Magnesium 2.1 mg/dl (1.6-2.3); Phosphorus 3.8 mg/dl (2.5-4.5); Potassium 4.3 mmol/L (3.5-5.1); Sodium 138 mmol/L (135-145); eGFR 59.63
[2025-02-27 07:31] VITALS: BP 134/73
--- NOTE | 2025-02-27 07:47 | PTCARENOTE ---
Pt aoox3 able to make his needs known. Pt was reminded multiple times about NWB on right foot, pt non complaint with post op instructions still prefers to get oob & prefers to ambulate to bathroom with walker. Pt provided with prn pain meds as
needed.Plan of care continued on pt.Call morfin in reach.
[2025-02-27] MEDS: THERAGRAN 1 TABLET PO (08:25)
[2025-02-27] MEDS: HEPARIN 5000 UNITS SC ×2 (08:26→19:55)
[2025-02-27] MEDS: LASIX 40 MG PO (08:26)
[2025-02-27] MEDS: PROTONIX IV 40 MG IV (08:27)
[2025-02-27] MEDS: FLOMAX 0.8 MG PO (08:27)
[2025-02-27] MEDS: NSS (PRESERVATIVE FREE) 10 ML IV (08:28)
[2025-02-27] MEDS: NON-FORMULARY ITEM 150 MG PO ×2 (08:39→19:55)
[2025-02-27] MEDS: DESENEX/MITRAZOL/ZEASORB 1 APPLIC TOPICAL ×2 (08:40→19:55)
[2025-02-27] MEDS: PROSCAR 5 MG PO (10:25)
--- NOTE | 2025-02-27 11:34 | W.PN.POD ---
Today's Communication
Today's Communication
Amputation site of right foot viable and stable. Packing pulled.
Anticipate discharge planning for tomorrow.
Assessment / Plan
-
Assessment:
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
S/P one day partial third ray amputation, right foot.
Prediabetes
Peripheal Neuropathy
Morbid Obesity
Chronic Renal Disease, stage II
Plan:
Amputation site of right foot viable and stable. No local signs of infection noted.
Pulling of packing and redressing of wound at bedside. Patient to keep foot at bed level.
Patient may bear weight in surgical shoe only, OOB to bathroom only.
Anticipate discharge planning for tomorrow.
*Note: Despite radiology reports, there are no clinical signs of acute infection of the right fourth toe.
Subjective
Chief Complaint
S/P one day partial third ray amputation, right foot.
Subjective
Patient reports some intermittent pain in the foot for which he says the PO analgesics have been helpful. He denies fever, chills or sweats.
Objective
Temp Pulse Resp BP Pulse Ox
98.3 F 82 18 134/73 96
02/27/25 07:31 02/27/25 08:26 02/27/25 07:31 02/27/25 08:26 02/27/25 08:20
02/27/25 05:41
02/27/25 05:41
Vital Signs and Lab results were reviewed.
Dressing to right foot stable and intact, with serosanguineous drainage over surgical site.
Capillary refill to the right foot intact.
Amputation site is viable, wound edges well apposed and sutures intact. Centralized defect following removal of packing from third ray amp site is stable, granulating in quite well.
No cellulitis, malodor, purulence noted. No local signs of infection present.
02/26/25 PO XRAYS, right foot: There has been osseous amputation of the phalanges of the third toe and the third metatarsal head. There is evidence for previous amputation of the phalanges of the great toe.
[2025-02-27] MEDS: TYLENOL 650 MG PO ×2 (12:28→23:10)
--- NOTE | 2025-02-27 13:20 | W.PN.ID1 ---
Date of Service
Date of Service: February 27, 2025
Today's Communication
Continue Zosyn.
Assessment / Plan
# Right third toe SSTI
# Right third osteomyelitis
# Fever- resolved
- Deep wound cx's Proteus, Morganella, Enterococcus
- 02/26/25 s/p partial ray amputation of 3rd toe
OR cx and path pending
- Blood cx's neg
- Continue Zosyn
- May be able to transition to po abx at time of discharge.
# R 4th abnormal MRI
- MRI reports acute osteo of prox and middle phalange of R 4th toe
- Agree with Podiatry that MRI DOES NOT clinically correlate, ie no wounds/erythema 4th toe.
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
Prediabetes
Neuropathy
Rheumatoid arthritis
Fibromyalgia
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
BPH
Hx toe amputations
Chief Complaint
-: Other (Right foot osteomyelitis)
Subjective / Review of Systems
Some post-op pain.
Vital Signs / Physical Exam
Vital Signs
Vital Signs
Temp Pulse Resp BP Pulse Ox
98.3 F 82 18 134/73 96
02/27/25 07:31 02/27/25 08:26 02/27/25 07:31 02/27/25 08:26 02/27/25 08:20
Physical Exam
Constitutional: No Acute Distress
Cardiovascular: Regular Rate and S1/S2
Pulmonary: Clear
Gastrointestinal: Soft, Non Tender and Non Distended
Extremities: Negative Edema (BLE decreased)
Wound: Other (Right foot dressing dry)
Neurological: AO x 3
Objective Data
Lab Data
Lab Results
02/27/25 05:41
02/27/25 05:41
Estimated Creat Clear 57 ml/min 02/27/25 05:41
Lactic Acid 1.7 mmol/L (0.7-2.0) 02/24/25 01:11
Total Bilirubin 0.6 mg/dl (0.2-1.3) 02/24/25 06:15
AST 76 U/L (17-59) H 02/24/25 06:15
ALT 29 U/L (0-50) 02/24/25 06:15
Alkaline Phosphatase 106 U/L (38-126) 02/24/25 06:15
Most recent labs reviewed.
Micro Results:
02/26/25 10:00 Anaerobic Culture - Preliminary
Toe Culture pending. Anaerobic cultures are examined after 3
days incubation. Additional information to follow.
02/26/25 10:00 Tissue Culture - Preliminary
Toe Gram Stain - Preliminary
02/24/25 15:54 Wound Culture - Final
Toe Proteus mirabilis
Morganella morganii
Enterococcus faecalis
Gram Stain - Final
02/23/25 16:30 Blood Culture - Preliminary
Blood/Venous No Growth in 72 hours- Final report to follow
02/23/25 16:26 Blood Culture - Preliminary
Blood/Venous No Growth in 72 hours- Final report to follow
02/24/25 01:11 MRSA Screen - Final
Nose No Methicillin Resistant Staphylococcus aureus isolated.
02/23/25 17:29 Influenza Types A & B ([facility]) - Final
Nasal Swab Negative for Influenza A & B, NAAT
Negative results must be combined with clinical observations
and patient history.
Nucleic Acid Amplification test (NAAT)performed on the
[employer] platform.
Imaging:
02/25/2025 MRI right lower extremity: Acute osteomyelitis of the phalanges of the left third toe. Acute osteomyelitis also seen in the middle and proximal phalanges of the left fourth toe.
02/23/25 CXR: Bibasilar pneumonia. Cannot rule out component of underlying chronic interstitial lung disease.
02/23/25 Right foot xray: Soft tissue wound noted along the distal aspect of the third digit with underlying soft tissue swelling. No convincing radiographic evidence for active osteomyelitis.
Care Review
Plan reviewed with: Physician (Dr. Luis)
--- NOTE | 2025-02-27 13:22 | W.PN.HOSP.TC ---
Today's Communication/Plan
-
Assessment / Plan
Assessment / Plan
Physical Exam
General: Well Developed, Well Nourished and No Apparent Distress
HEENT: NormoCephalic, Moist mucous membranes and Atraumatic
Respiratory: Clear, no increased work of breathing
Cardiac: S1/S2 and Regular Rhythm; No Murmur or Rub
GI: Soft, Non Tender, Non Distended and Normal Bowel Sounds; No Organomegaly
Musculoskeletal: No Clubbing, No Cyanosis, right foot surgical dressing with mild strikethrough
Skin: No Rash
Neuro: AOx3 conversant coherent
84M RA Gout Fibromyalgia Prediabetes Chronic Neuropathy prior toe amputations here for sepsis right 3rd toe infection.
# Sepsis (fever, leukocytosis, tachycardia) secondary to right third toe infection likely osteomyelitis
- Currently stable, status post right right foot third ray partial amputation 02/26, tolerated procedure well
- Blood Cultures NGTD, wound culture growing multiple organisms (Proteus, Morganella, Enterococcus)
- IV fluids completed, BP stable, lactic acidosis resolved, tolerating diet
- resume home Lasix
- ID eval appreciated Vancomycin dc, Zosyn continued
- Nonweightbearing to right toes, surgical shoe while ambulating, follow-up PT/OT recommendations
- Podiatry following, continue local wound care
- Anticipate discharge tomorrow 02/28
- Pain control, prn Tylenol, prn Tramadol switched to Toradol (patient reported adverse effect Tramadol hallucination, made him 'feel crazy')
- Protonix GI prophylaxis with Toradol use
#Hypoxia w/ Lower ext edema
#Pulm hypertension
#Likely iatrogenic fluid overload
#Hx lower ext lymphedema
BNP 672
ECHO appreciated EF 65-70% mild mod mitral stenosis
Home Lasix resumed PO 40 mg daily
Hypoxia since resolved stable resp status on room air
# Ambulatory dysfunction/fall
History of left toe amputation
Rheumatoid arthritis
Gout
Fibromyalgia
Prediabetes
Chronic neuropathy
History of Streptococcus agalactiae bacteremia
BPH
- Continue tamsulosin, finasteride
DNR/DNI
DVT prophylaxis-heparin
Regular diet
I spent a total of 40 minutes with the patient or on the floor. More than 50% of this time involved counseling and coordination of care.
Anticipated Discharge: 24 - 48 hours
Subjective/Interval History
-
Date of Service: February 27, 2025
Patient was seen and examined at bedside this morning. Status post right third toe partial amputation yesterday 02/26. Tolerated procedure well. Not experiencing any pain due to neuropathy.
Objective Data
-
Labs:
Laboratory Results
02/27/25
05:41
WBC 11.6 H
Hgb 12.6 L
Hct 37.8 L
Plt Count 242
Sodium 138
Potassium 4.3
Chloride 104
Carbon Dioxide 29
BUN 21 H
Creatinine 1.2
Glucose 118 H
Calcium 8.7
Vital Signs:
Vital Signs
Temp Pulse Resp BP Pulse Ox
98.3 F 82 18 134/73 96
02/27/25 07:31 02/27/25 08:26 02/27/25 07:31 02/27/25 08:26 02/27/25 08:20
I&O
02/26/25 02/27/25 02/28/25
06:59 06:59 06:59
Intake Total 720 / 720 465 / 465
Output Total 2825 / 2825 200 / 200
Balance -2105 / -2105 265 / 265
Review of Systems
-
History Source: Patient
All other systems: Reviewed and negative
Physical Exam
-
General: No Apparent Distress
[2025-02-27 15:56] VITALS: BP 140/85
--- NOTE | 2025-02-27 17:00 | CM ---
Postop amputation left 4 th toe.
Offered VN he requested [facility] .
will drive him home.
PLAN Home with [facility]
[2025-02-27] MEDS: REFRESH EYE DROPS (PF) 1 DROPS BOTH EYES (18:04)
[2025-02-27] MEDS: NIZORAL 2% CREAM TOPICAL (18:19)
[2025-02-27 23:05] VITALS: BP 140/72
[2025-02-28] MEDS: ZOSYN 50 IV ×2 (05:16→12:19)
[2025-02-28] MEDS: TYLENOL 650 MG PO (05:22)
[2025-02-28 05:51] VITALS: BMI 38.3
[2025-02-28 07:55] VITALS: BP 141/71
[2025-02-28 08:02] LABS: Hematocrit 35.4 % (39.0-52.0); Mean Corp Hgb Conc. 33.9 g/dL (33.0-37.0); Mean Corpuscular Hgb 30.2 pg (27.0-31.0); Mean Corpuscular Volume 88.9 fL (80.0-94.0); Mean Platelet Volume 9.3 fL (7.4-10.4); Platelet Count 235 10^3/uL (130-400); Red Blood Cell Count 3.98 10^6/uL (4.70-6.10); Red Cell Dist. Width 13.4 % (11.5-14.5); White Blood Cell Count 11.3 10^3/uL (4.8-10.8)
[2025-02-28 08:29] LABS: Blood Urea Nitrogen 22 mg/dl (9-20); Calcium 8.4 mg/dl (8.4-10.2); Carbon Dioxide 25 mmol/L (22-30); Chloride 106 mmol/L (98-107); Estimated Creatinine Clearance 56 ml/min; Glucose 187 mg/dl (70-99); Phosphorus 3.1 mg/dl (2.5-4.5); Sodium 137 mmol/L (135-145); eGFR 59.63
[2025-02-28] MEDS: NON-FORMULARY ITEM 150 MG PO (08:43)
[2025-02-28] MEDS: PROSCAR 5 MG PO (08:44)
[2025-02-28] MEDS: LASIX 40 MG PO (08:44)
[2025-02-28] MEDS: FLOMAX 0.8 MG PO (08:44)
[2025-02-28] MEDS: THERAGRAN 1 TABLET PO (08:44)
[2025-02-28] MEDS: NSS (PRESERVATIVE FREE) 10 ML IV (08:45)
[2025-02-28] MEDS: PROTONIX IV 40 MG IV (08:45)
[2025-02-28] MEDS: FLUSH (NSS) 2 FLUSH IV ×3 (08:45→16:19)
[2025-02-28] MEDS: HEPARIN 5000 UNITS SC (08:45)
[2025-02-28] MEDS: DESENEX/MITRAZOL/ZEASORB 1 APPLIC TOPICAL (08:46)
--- NOTE | 2025-02-28 08:57 | CM ---
assistant auto center manager reviewed patient's chart and patient is currently on room air 97%, plan is to home with spouse and visiting nurses, visiting nurse options reviewed and they have selected [facility], [facility] liaison is aware and will follow with patient.
Plan; Home with spouse and [facility].
[2025-02-28] MEDS: REFRESH EYE DROPS (PF) 1 DROPS BOTH EYES (12:18)
--- NOTE | 2025-02-28 12:45 | W.PN.ID1 ---
Date of Service
Date of Service: February 28, 2025
Today's Communication
- Suspect surgical cure
- At time of discharge, transition to Augmentin 875mg po bid and doxycycline 100mg po bid x 14 days.
Assessment / Plan
# Right third toe SSTI
# Right third osteomyelitis
# Fever- resolved
- Deep wound cx's Proteus, Morganella, Enterococcus
- 02/26/25 s/p partial ray amputation of 3rd toe
OR cx: Enterococcus, CoNS
Bone margin path pending
- Blood cx's neg
- Continue Zosyn
- Suspect surgical cure
- At time of discharge, transition to Augmentin 875mg po bid and doxycycline 100mg po bid x 14 days.
# R 4th abnormal MRI
- MRI reports acute osteo of prox and middle phalange of R 4th toe
- Agree with Podiatry that MRI DOES NOT clinically correlate, ie no wounds/erythema 4th toe.
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
Prediabetes
Neuropathy
Rheumatoid arthritis
Fibromyalgia
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
BPH
Hx toe amputations
Chief Complaint
-: Other (Right foot osteomyelitis)
Vital Signs / Physical Exam
Vital Signs
Vital Signs
Temp Pulse Resp BP Pulse Ox
98.5 F 76 20 141/71 97
02/28/25 07:55 02/28/25 07:55 02/28/25 07:55 02/28/25 08:44 02/28/25 07:55
Physical Exam
Constitutional: Comfortable
Pulmonary: Clear
Gastrointestinal: Soft, Non Tender, Non Distended and Normal Bowel Sounds
Genito-Urinary: Negative CVA Tenderness
Neurological: AO x 3
Objective Data
Lab Data
Lab Results
02/28/25 07:41
02/28/25 07:41
Estimated Creat Clear 56 ml/min 02/28/25 07:41
Lactic Acid 1.7 mmol/L (0.7-2.0) 02/24/25 01:11
Total Bilirubin 0.6 mg/dl (0.2-1.3) 02/24/25 06:15
AST 76 U/L (17-59) H 02/24/25 06:15
ALT 29 U/L (0-50) 02/24/25 06:15
Alkaline Phosphatase 106 U/L (38-126) 02/24/25 06:15
Most recent labs reviewed.
Micro Results:
02/26/25 10:00 Tissue Culture - Preliminary
Toe Enterococcus species
Coagulase neg. staphylococcus
Gram Stain - Preliminary
02/23/25 16:30 Blood Culture - Preliminary
Blood/Venous No Growth in 4 days- Final report to follow
02/23/25 16:26 Blood Culture - Preliminary
Blood/Venous No Growth in 4 days- Final report to follow
02/26/25 10:00 Anaerobic Culture - Preliminary
Toe Culture pending. Anaerobic cultures are examined after 3
days incubation. Additional information to follow.
02/24/25 15:54 Wound Culture - Final
Toe Proteus mirabilis
Morganella morganii
Enterococcus faecalis
Gram Stain - Final
02/24/25 01:11 MRSA Screen - Final
Nose No Methicillin Resistant Staphylococcus aureus isolated.
02/23/25 17:29 Influenza Types A & B ([facility]) - Final
Nasal Swab Negative for Influenza A & B, NAAT
Negative results must be combined with clinical observations
and patient history.
Nucleic Acid Amplification test (NAAT)performed on the
[employer] platform.
Imaging:
02/25/2025 MRI right lower extremity: Acute osteomyelitis of the phalanges of the left third toe. Acute osteomyelitis also seen in the middle and proximal phalanges of the left fourth toe.
02/23/25 CXR: Bibasilar pneumonia. Cannot rule out component of underlying chronic interstitial lung disease.
02/23/25 Right foot xray: Soft tissue wound noted along the distal aspect of the third digit with underlying soft tissue swelling. No convincing radiographic evidence for active osteomyelitis.
--- NOTE | 2025-02-28 14:18 | W.DCSUMMARY ---
Discharge Summary
Discharge Data
Date of Admission: 02/23/25
Date of Discharge: 02/28/25
Total time spent discharging patient (in min): 40
-
Pending Results: No
Hospital Course
Mr. Livingston is an 84-year-old male with a medical history of neuropathy, prior right foot toe amputations, gout, prediabetes, and fibromyalgia who presented with nonhealing right third toe wound. He was admitted for sepsis secondary to right third
toe osteomyelitis. His clinical status improved with IV antibiotics. He was brought to the OR on 02/26 with podiatry for partial right foot third ray amputation with surgical cure suspected. He tolerated the procedure well. Wound culture grew
Proteus, Morganella, and Enterococcus. He will need ongoing local wound care and will need to wear a surgical shoe on his right foot when ambulating. At the time of possible discharge she was medically stable. He will be continued on antibiotics
with Augmentin and doxycycline for 14 days after hospital discharge. He will need ongoing follow-up with his primary care physician and with podiatry.
Physical Exam
General: Well Developed, Well Nourished and No Apparent Distress
HEENT: NormoCephalic, Moist mucous membranes and Atraumatic
Respiratory: Clear, no increased work of breathing
Cardiac: S1/S2 and Regular Rhythm; No Murmur or Rub
GI: Soft, Non Tender, Non Distended and Normal Bowel Sounds; No Organomegaly
Musculoskeletal: No Clubbing, No Cyanosis, right foot surgical dressing clean dry intact
Skin: No Rash
Neuro: AOx3 conversant coherent
Discharge Plan
-
Patient Disposition: Home with Home Care
Discharge Diagnosis/Procedures: Right foot osteomyelitis
Additional Activity: Use surgical shoe right foot when ambulating
Activity Restrictions/Additional Instructions:
Mr. Livingston is an 84-year-old male with a medical history of neuropathy, prior right foot toe amputations, gout, prediabetes, and fibromyalgia who presented with nonhealing right third toe wound. He was admitted for sepsis secondary to right third
toe osteomyelitis. His clinical status improved with IV antibiotics. He was brought to the OR on 02/26 with podiatry for partial right foot third ray amputation with surgical cure suspected. He tolerated the procedure well. Wound culture grew
Proteus, Morganella, and Enterococcus. He will need ongoing local wound care and will need to wear a surgical shoe on his right foot when ambulating. At the time of possible discharge she was medically stable. He will be continued on antibiotics
with Augmentin and doxycycline for 14 days after hospital discharge. He will need ongoing follow-up with his primary care physician and with podiatry.
Referrals:
John Judge MD [Family Provider, Family Practice]
Jaylen Luis DPM [Specified Professional Personl, Podiatry]
Prescriptions:
New
amoxicillin-pot clavulanate 875-125 mg tablet
1 tab PO BID 14 Days Qty: 28 0RF
doxycycline hyclate 100 mg capsule
100 mg PO BID 14 Days Qty: 28 0RF
Continued
tamsulosin 0.4 MG capsule
0.8 mg PO DAILY
saw palmetto 160 MG capsule
160 mg PO DAILY
ketoconazole 1 APPLIC cream
1 applic topical QPM
finasteride 5 MG tablet
5 mg PO DAILY
Patient Comments:
T
Systane (PF) 1 EACH dropperette
1 ea BOTH EYES DAILYPRN PRN (Reason: dry eye)
Centrum Silver Men 1 EACH tablet
1 ea PO DAILY
benfotiamine 150 mg Capsule
150 mg PO BID
Changed
furosemide 20 MG tablet
40 mg PO DAILY Qty: 0 0RF
Patient Comments:
pt stated he is supposed to take 60 mg but he has only been taking 20mg
Discharge Orders:
Discharge Patient (As Directed); Ordered 02/28/25
Ordered By: Zhang Short
Discharge Date and Time
Print Language: URDU
[2025-02-28 15:54] VITALS: BP 136/84
[2025-02-28] MEDS: TORADOL 15 MG IV (16:19)
== END 2025-02-28 18:15 | disposition home health service (06) | DRG 854 ==
LOC: 4 EAST ACU 19:01
PROVIDERS: Internal Medicine; Physician Assistant; ADMITTING PHYSICIAN Hospitalist; ATTENDING PHYSICIAN Internal Medicine; CONSULT PHYSICIAN Podiatrist Foot & Ankle Surgery; EMERGENCY PHYSICIAN Emergency Medicine; FAMILY PHYSICIAN Family Medicine; OTHER PHYSICIAN Internal Medicine Infectious Disease
PROC: 0Y6T0Z1 Detachment at Right 3rd Toe, High, Open Approach (ICD-10-PCS; 2025-02-26)
DX: A41.9 Sepsis, unspecified organism (principal); M86.9 Osteomyelitis, unspecified; E11.69 Type 2 diabetes mellitus with other specified complication; M06.9 Rheumatoid arthritis, unspecified; M10.9 Gout, unspecified; M79.7 Fibromyalgia; N18.2 Chronic kidney disease, stage 2 (mild); E11.22 Type 2 diabetes mellitus with diabetic chronic kidney disease; E11.40 Type 2 diabetes mellitus with diabetic neuropathy, unspecified; L03.031 Cellulitis of right toe; R09.02 Hypoxemia; I05.0 Rheumatic mitral stenosis; N40.0 Benign prostatic hyperplasia without lower urinary tract symptoms; Z66 Do not resuscitate; B96.4 Proteus (mirabilis) (morganii) as the cause of diseases classified elsewhere; W18.30XA Fall on same level, unspecified, initial encounter; E11.621 Type 2 diabetes mellitus with foot ulcer; E66.813 Obesity, class 3; Z68.38 Body mass index [BMI] 38.0-38.9, adult; E78.00 Pure hypercholesterolemia, unspecified; Z11.52 Encounter for screening for COVID-19; K58.9 Irritable bowel syndrome, unspecified; Z89.422 Acquired absence of other left toe(s)
CPT/HCPCS: 88304; 88305; 88311; 71046; 73630; 73718; 80048; 80053; 81003; 83605; 83735; 83880; 84100; 84443; 84484; 85025; 85027; 87040; 87070; 87071; 87075; 87076; 87077; 87176; 87186; 87205; 87502; 87811; 93005; 93306; 96365; 97116; 97162; 97167; 99285; Q9950